=== PATIENT | female | born 1965 | race Asian ===

== ENCOUNTER → 2020-07-17 | Outpatient (CLI) | payer SELFPAY ==
[~2020-07-17] MED LIST: ATEN50 PO
== END | disposition home or self-care (01) ==
LOC: LAB SHORT 16:04 → LAB 16:04
DX: N39.0 Urinary tract infection, site not specified (principal)
CPT/HCPCS: 87086

== ENCOUNTER 2021-05-23 14:13 | Emergency (ER) | payer BC ==
[~2021-05-23] VITALS: Ht 157.5 cm; Wt 54.4 kg
[2021-05-23] MEDS ORDERED: ONDA4ODT SL (17:27)
== END 2021-05-23 17:40 | disposition home or self-care (01) ==
LOC: ER 14:13
DX: S00.03XA Contusion of scalp, initial encounter (principal); I10 Essential (primary) hypertension; W17.89XA Other fall from one level to another, initial encounter
CPT/HCPCS: 70450; 99283-25; A9270